=== PATIENT | male | born 1945 | race Caucasian/White ===

== ENCOUNTER 2016-12-02 11:05 | Emergency (ER) | payer OTHER ==
[2016-12-02] MEDS ORDERED: IPRATROPIUM/ALBUTEROL 3 ML DEYVIAL IH ONE (11:34)
[2016-12-02 11:47] VITALS: TEMP 99.8
[2016-12-02] MEDS ORDERED: predniSONE 20 MG TAB PO ONE (12:04)
--- NOTE | 2016-12-02 12:08 | UCPHY ---
H & P Patient Type: New Chief Complaint Nursing Narrative: COUGH,SOB,TIRED STARTED 2 WEEKS AGO Time Seen by Provider: 12/02/16 11:11 HPI/ROS: This patient has a history of COPD controlled with inhalers and reports increase in his baseline cough over the past 2 weeks with low-grade subjective fevers over the past week or so. Also feels slightly more winded than usual with exertion. No other new symptoms. His also has a history of cough for the past 2 weeks. ROS: No high fevers or chills. No significant fatigue. HEENT: Mild nasal congestion. No eye symptoms. No significant sore throat. Pulmonary: No pleuritic pain. No respiratory distress. No hemoptysis. Cardiovascular: No chest pain. No lower extremity swelling or calf pain. GI: No nausea vomiting or belly pain. 10 point ROS is otherwise negative. Source: Patient Exam Limitations: No limitations - Personal History Current Tetanus Diphtheria and Acellular Pertussis (TDAP): Yes - Medical/Surgical History PMH: COPD. He is not on home O2 He is uncertain of his baseline O2 sat Hx Asthma: No Hx Chronic Respiratory Disease: Yes Hx Diabetes: No Hx Cardiac Disease: No Hx Renal Disease: No Hx Cirrhosis: No Hx Alcoholism: No Hx HIV/AIDS: No Hx Splenectomy or Spleen Trauma: No Other PMH: HERNIA REPAIR - Family History Significant Family History: No pertinent family hx - Social History Smoking Status: Former smoker Alcohol Use: Occasionally Drug Use: None Additional Social History: The patient quit smoking 10 years ago. He drove to [place] from [place] to visit family 2 weeks ago with his . - Physical Exam Exam: General Appearance: Alert, no distress. Eyes: Pupils equal and round no pallor or injection. ENT, Mouth: Mucous membranes moist. Respiratory: Bilateral expiratory wheeze and mild rhonchi. I appreciate no rales. Cardiovascular: Regular rate and rhythm. No murmur gallop rub. No JVD. No leg edema or calf tenderness. Neurological: GCS of 15. No focal sensory or deficits appreciated Skin: Warm and dry, no rashes. Musculoskeletal: Neck is supple nontender. Extremities are symmetrical, full range of motion. Psychiatric: mood and affect are normal DIFFERENTIAL DIAGNOSIS: After history and physical exam differential diagnosis was considered for COPD exacerbation, pneumonia, URI with cough Constitutional: Initial Vital Signs Temperature (C) 37.7 C 12/02/16 11:15 Heart Rate 85 12/02/16 11:15 Respiratory Rate 18 12/02/16 11:15 Blood Pressure 163/80 H 12/02/16 11:15 O2 Sat (%) 89 L 12/02/16 11:15 O2 Delivery Mode Room Air Allergies/Adverse Reactions: shellfish derived [shrimp] Allergy (Verified 12/02/16 11:12) Home Medications: Medication Instructions Recorded Advair 250/50 (*) 12/02/16 Albuterol Hfa Anes Only [Proair 2 puffs IH Q4 PRN #1 mdi 12/02/16 Hfa Icu (*)] Azithromycin [Zithromax] 250 mg PO DAILY #6 tab 12/02/16 B-12 12/02/16 Centrum Silver Men Tablet 12/02/16 Ezetimibe 12/02/16 Spiriva Inhaler (RX) 12/02/16 Verapamil ER 12/02/16 predniSONE 60 mg PO DAILY #11 tab 12/02/16 Medical Decision Making ED Course/Re-evaluation: DuoNeb with increased aeration mild decreased wheeze slight improvement in his O2 sat 90-91% on room air. Prednisone 60 mg p. o. I counseled the patient regarding COPD exacerbation. Will cover him with macrolide antibiotic as well. He will continue his current inhalers with the addition of the albuterol inhaler, Zithromax and prednisone. Clinically he does not have any concerning findings for sepsis or other complicating factors. - Data Points Medications Given: Discontinued Medications Albuterol/Ipratropium (Duoneb) 3 ml IH EDNOW ONE Stop: 12/02/16 11:35 Last Admin: 12/02/16 11:48 Dose: 3 ml Prednisone (Prednisone) 60 mg PO EDNOW ONE Stop: 12/02/16 12:05 Last Admin: 12/02/16 12:08 Dose: 60 mg Departure - Departure Disposition: Home, Routine, Self-Care Clinical Impression: COPD exacerbation Condition: Good Instructions: COPD (Chronic Obstructive Pulmonary Disease) (ED) Additional Instructions: Diagnosis: COPD exacerbation Plan: Albuterol inhaler with spacer-2 puffs every 4 hours as needed for cough, wheeze or shortness of breath Continue your other inhalers Prednisone steroid as prescribed in the mornings after breakfast Zithromax antibiotic Go to the emergency department for any significant worsening despite the treatment plan Referrals: [facility] [Other] - As per Instructions Prescriptions: Albuterol Hfa Anes Only [Proair Hfa Icu (*)] 2 puffs IH Q4 PRN #1 mdi PRN Reason: Wheezing Azithromycin [Zithromax] 250 mg PO DAILY #6 tab predniSONE 60 mg PO DAILY #11 tab - PQRS PQRS Measurement: 134: Depression screening and followup, PRIME MD-PHQ2 (12 years and older) Over the last 2 weeks, how often have you been bothered by any of the following problems? 1. Feeling down, depressed, or hopeless? 2. Little interest or pleasure in doing things? Patient answered no to both 1 and 2 130: Documentation of medications. Reviewed all patient medications, doses, route and frequency. 226: Do you smoke? [No.] 47: 65 and older: Advanced care planning. Patient designates surrogate decision maker as spouse 51: 18 years old and older with diagnosis of COPD, spirometry performance. NA 52: 18 years old and older with COPD and symptoms of COPD or FEV1<60% predicted prescribed a B Agonist. NA
[2016-12-02 12:10] VITALS: BP 148/88; PULSE 92; RESP 19; O2SAT 90
== END 2016-12-02 12:10 | disposition home or self-care (01) ==
LOC: CED 11:05
DX: J44.1 Chronic obstructive pulmonary disease with (acute) exacerbation (principal); Z87.891 Personal history of nicotine dependence
CPT/HCPCS: 71020; G0463; 99204-PO

== ENCOUNTER 2017-11-30 09:39 | Emergency (ER) | payer OTHER ==
[2017-11-30 09:58] VITALS: RESP 16; TEMP 97.9
[2017-11-30] MEDS ORDERED: IPRATROPIUM/ALBUTEROL 3 ML DEYVIAL IH ONE (10:04)
--- NOTE | 2017-11-30 10:08 | EDPHY ---
H & P Stated Complaint: productive cough for 3 days Time Seen by Provider: 11/30/17 09:59 HPI/ROS: Chief Complaint: Cough, congestion HPI: 72-year-old male with a history of esophageal cancer and COPD has had a productive cough of greenish sputum for the last 3 days. No fevers or chills. Some shortness of breath with increasing use of his inhalers. He normally uses control inhaler but has been using more albuterol. No shortness of breath. No body aches. No headache. No nausea or vomiting. No decreased exercise tolerance. He is visiting from [place]. He is not currently on chemotherapeutic agents. My ROS PMH: COPD, esophageal cancer Social History: Past smoking, no alcohol, no recreational drug use Family History: non-contributory Physical Exam: Gen: Awake, Alert, No Distress HEENT: Nose: no rhinorrhea Eyes: PERRLA, EOMI Mouth: Moist mucosa Neck: Supple, no JVD Chest: nontender, diffuse expiratory wheeze, no focal rales or rhonchi Heart: S1, S2 normal, no murmur Abd: Soft, non-tender, no guarding Back: no CVA tenderness, no midline tenderness Ext: no edema, non-tender Skin: no rash Neuro: CN II-XII intact, Sensation grossly intact, Strength 5/5 in bilateral upper and lower extremities - Personal History Current Tetanus Diphtheria and Acellular Pertussis (TDAP): Yes Tetanus Vaccine Date: unsure - Medical/Surgical History Hx Asthma: No Hx Chronic Respiratory Disease: Yes Hx Diabetes: No Hx Cardiac Disease: No Hx Renal Disease: No Hx Cirrhosis: No Hx Alcoholism: No Hx HIV/AIDS: No Hx Splenectomy or Spleen Trauma: No Other PMH: HERNIA REPAIR,Copd,thrush,hypertension,high cholesterol,reflux - Social History Smoking Status: Former smoker Constitutional: Initial Vital Signs Temperature (C) 36.6 C 11/30/17 09:55 Heart Rate 92 11/30/17 09:55 Respiratory Rate 16 11/30/17 09:55 Blood Pressure 175/90 H 11/30/17 09:55 O2 Sat (%) 95 11/30/17 09:55 O2 Delivery Mode Room Air Allergies/Adverse Reactions: shellfish derived [shrimp] Allergy (Verified 11/30/17 09:53) Home Medications: Medication Instructions Recorded Advair 250/50 (*) 12/02/16 Albuterol Hfa Anes Only [Proair 2 puffs IH Q4 PRN #1 mdi 12/02/16 Hfa Icu (*)] B-12 12/02/16 Centrum Silver Men Tablet 12/02/16 Ezetimibe 12/02/16 Spiriva Inhaler (RX) 12/02/16 Verapamil ER 12/02/16 Azithromycin [Zithromax] 250 mg PO DAILY #6 tab 11/30/17 Medical Decision Making ED Course/Re-evaluation: 72-year-old male with a history of COPD with symptoms consistent with bronchitis. He is afebrile. Oxygen saturations are okay. He is improved after DuoNeb. Will send him home with azithromycin, follow up with his doctor returns to [place]. - Data Points Medications Given: Discontinued Medications Albuterol/Ipratropium (Duoneb) 3 ml IH EDNOW ONE Stop: 11/30/17 10:05 Last Admin: 11/30/17 10:17 Dose: 3 ml Departure - Departure Disposition: Home, Routine, Self-Care Clinical Impression: Acute bronchitis Condition: Good Instructions: Acute Bronchitis (ED), COPD (Chronic Obstructive Pulmonary Disease) (ED) Additional Instructions: Please take your full course of antibiotics. Follow up with your primary care physician when she returns home to [place]. Return to the emergency department for worsening shortness of breath, worsening cough, fevers or chills, nausea vomiting, or any other concerns. Prescriptions: Azithromycin [Zithromax] 250 mg PO DAILY #6 tab
[2017-11-30 10:49] VITALS: PULSE 86; O2SAT 93
[2017-11-30 10:50] VITALS: BP 165/86
== END 2017-11-30 10:46 | disposition home or self-care (01) ==
LOC: CED 09:39
DX: J20.9 Acute bronchitis, unspecified (principal); J44.9 Chronic obstructive pulmonary disease, unspecified; I10 Essential (primary) hypertension; Z85.01 Personal history of malignant neoplasm of esophagus; Z87.891 Personal history of nicotine dependence

== ENCOUNTER → 2018-06-30 | Outpatient (CLI) | payer OTHER | LOC: SUPIMAGING 11:28 | PROVIDERS: ATTEND Nurse Practitioner Family | DX: J44.9 Chronic obstructive pulmonary disease, unspecified (principal); J40 Bronchitis, not specified as acute or chronic | CPT/HCPCS: 71046-PN ==

== ENCOUNTER 2019-01-20 09:36 | Emergency (ER) | payer OTHER ==
[2019-01-20] MEDS ORDERED: IPRATROPIUM/ALBUTEROL 3 ML DEYVIAL IH ONE (09:53)
[2019-01-20] MEDS ORDERED: MAGNESIUM SULF 2 GM/WATER 50 ML IV ONE (10:05)
[2019-01-20] MEDS ORDERED: methylPREDNISolone SOD SUCC 125 MG/2 ML VIAL IVP ONE (10:05)
--- NOTE | 2019-01-20 10:13 | EDPHY ---
H & P Time Seen by Provider: 01/20/19 09:47 HPI/ROS: HPI Shortness of breath. Cough. 73-year-old male by private vehicle. This patient has a history of COPD. He visits [place] this time of year in the summertime. He often develops a bronchitis after being here for a week or 2. He has been here for 2-3 weeks at this time. He reports that he developed shortness of breath with a cough about a week ago. He was seen at an urgent care on Thursday. He was given an albuterol nebulizer treatment and discharged with a prescription for azithromycin. He is on day 3. Of his azithromycin. He presents back to the emergency department complaining of continued cough, wheezing and persistent shortness of breath. He is not on oxygen at home. He denies fever. ROS: Constitutional: No fever, no chills. No weakness. Eyes: No discharge. No changes in vision. ENT: No sore throat. No nasal congestion or rhinorrhea. Respiratory: As above. Cardiac: No chest pain, no palpitations. Gastrointestinal: No abdominal pain, no vomiting, no diarrhea. Genitourinary: No hematuria. No dysuria or increased frequency with urination. Musculoskeletal: No back pain. No neck pain. No myalgias or arthralgias. Skin: No rashes. Neurological: No headache. No focal weakness or altered sensation. Past medical history: Former smoker. Quit years ago. History of COPD. Hypertension, hyperlipidemia, reflux, esophageal cancer with surgery. Hernia repair. Social history: Former smoker. No alcohol. Currently here by himself. Visiting family in [place] from [place]. He drove here. He is planning on leaving next week with his . He is staying with family. Physical Exam: General Appearance: Alert, he is not in distress. Intermittent wet sounding cough. This patient is responding to questions appropriately and in full sentences. This patient appears well-hydrated and well-nourished. Eyes: Pupils equal and round no pallor or injection. No lid edema, erythema or injection. Respiratory: There are no retractions, diffuse wheezing on inhalation and exhalation bilaterally in all gamino. Scant rhonchi. Diminished air movement. No tachypnea. Cardiovascular: Regular rate and rhythm. No murmur. Neurological: Motor sensory function is grossly intact. Cranial nerves are normal. Gait is normal. Skin: Warm and dry, no rashes. Musculoskeletal: Neck is supple and nontender. Extremities are symmetrical. No significant lower extremity edema. All joints range without pain or impingement. Psychiatric: No agitation. No depression. Database: EKG: Imaging: Chest x-ray PA and lateral: Perihilar bronchitis. The cardiac mediastinal silhouette is otherwise unremarkable. Findings consistent with COPD. No focal infiltrate or pneumothorax. Interpreted by me. Procedures: Emergency department course: Triage vital signs reviewed. He is hypertensive. Room air pulse oximetry is 91 -92%. Vital signs are otherwise normal. He is afebrile. IV was established. He was placed on a assistant guest services manager. He was started on 2 [id number] albuterol/ Atrovent nebulizer treatments. He will be given 125 mg of IV Solu-Medrol and 2 g of IV magnesium. Chest x-ray to be obtained. He will be put on nasal cannula oxygen at 2-3 L. 10:45 a.m., the patient was re-evaluated, he is talking on the phone to a friend. Repeat pulmonary exam he is still diminished with some improvement. No tachypnea. He is still wheezing bilaterally with scant rhonchi. He will be given 2 additional albuterol nebulizer treatments. He has had the above medications. He will then be reassessed with a walking pulse oximetry and decision will be made on disposition. 11:30 a.m., the patient was re-evaluated, he has finished his albuterol nebulizer treatments. Repeat pulmonary exam he does have improved air movement but still has some wheezing. He is not tachypneic. He is speaking in full sentences. Pulse oximetry on 2 L of nasal cannula oxygen is 94%. I discussed admission with him. He does not want to be admitted. He lives about 5 min from the emergency department. We will get him up and walk him around the emergency department and see how he does. Another option if he declines admission is to send him home with oxygen. He endorses. 11:45 a.m., the patient is up and ambulatory without difficulty. However, his room air pulse oximetry drops to 87%. He does not want to be admitted to the hospital. Plan will be to send him home with home oxygen 2 L by nasal cannula continuous. I will also prescribe him prednisone at 60 mg daily for the next 4 days. He is to finish his azithromycin. He is on day 3 of that 5 day course currently. He has albuterol at home. I instructed him on dosing and usage of an albuterol MDI. Return to emergency department precautions were thoroughly reviewed with him. All of his questions were answered. He was discharged from the emergency department in good condition with oxygen. Differential Diagnosis: The differential diagnosis on this patient includes but is not limited to COPD exacerbation with bronchitis, reactive airway disease, pneumonia, CHF. This represents a partial list of diagnoses considered. These considerations are based on history, physical exam, past history, reassessment and diagnostic testing. Smoking Status: Former smoker Constitutional: Initial Vital Signs Temperature (C) 36.5 C 01/20/19 09:47 Heart Rate 92 01/20/19 09:47 Respiratory Rate 20 01/20/19 09:47 Blood Pressure 181/109 H 01/20/19 09:47 O2 Sat (%) 91 L 01/20/19 09:47 O2 Delivery Mode Nasal Cannula O2 (L/minute) 2 Allergies/Adverse Reactions: shellfish derived [shrimp] Allergy (Verified 01/20/19 09:45) Home Medications: Medication Instructions Recorded Advair 250/50 (*) 12/02/16 Albuterol Hfa Anes Only [Proair 2 puffs IH Q4 PRN #1 mdi 12/02/16 Hfa Icu (*)] B-12 12/02/16 Centrum Silver Men Tablet 12/02/16 Ezetimibe 12/02/16 Spiriva Inhaler (RX) 12/02/16 predniSONE [prednisone 20mg (RX)] 60 mg PO DAILY #9 tab 01/20/19 Medical Decision Making - Diagnostics Imaging Results: Imaging Impressions Chest X-Ray 01/20/19 10:06 Impression: Underlying interstitial lung disease and pleural/probable fibrosis in the right costophrenic angle. Acute bilateral lower lobe interstitial infiltrates present on previous study of November 28, 2017 have resolved in the interval.. - Data Points Medications Given: Discontinued Medications Albuterol (Proventil Neb) 6 ml IH EDNOW ONE Stop: 01/20/19 10:44 Last Admin: 01/20/19 10:48 Dose: 6 ml Albuterol/Ipratropium (Duoneb) 6 ml IH EDNOW ONE Stop: 01/20/19 09:54 Last Admin: 01/20/19 10:01 Dose: 6 ml Magnesium Sulfate (Magnesium Sulf 2 Gm (Premix)) 50 mls @ 50 mls/hr IV EDNOW ONE Stop: 01/20/19 11:04 Last Admin: 01/20/19 10:39 Dose: 50 mls Methylprednisolone Sodium Succinate (Solu-Medrol) 125 mg IVP EDNOW ONE Stop: 01/20/19 10:06 Last Admin: 01/20/19 10:21 Dose: 125 mg Departure - Departure Disposition: Home, Routine, Self-Care Clinical Impression: Bronchitis, COPD exacerbation Condition: Good Instructions: Using Oxygen at Home (ED), Acute Bronchitis (ED), COPD (Chronic Obstructive Pulmonary Disease) (ED) Additional Instructions: Read and follow provided instructions. Because you do not have a primary care physician here. We will serve as your Backup for follow-up and immediate care needs. Your to take 60 mg of prednisone daily for the next 4 days. Then stop. Albuterol meter dose inhaler: 1-2 puffs every 2-4 hours for the next 24-48 hours while awake. Then every 4-6 hours as needed. Finish your azithromycin antibiotic as prescribed. Use oxygen at 2-3 L through the nasal cannula when up and ambulating and when sleeping. Most important, return to the emergency department immediately for worsening cough, fever, difficulty breathing or other serious concerns. Referrals: NONE *PRIMARY CARE P,. [Primary Care Provider] - As per Instructions Prescriptions: predniSONE [prednisone 20mg (RX)] 60 mg PO DAILY #9 tab
[2019-01-20] MEDS ORDERED: ALBUTEROL 3 ML DEYVIAL IH ONE (10:43)
[2019-01-20 13:35] VITALS: BP 165/89
== END 2019-01-20 13:04 | disposition home or self-care (01) ==
LOC: CED 09:36
DX: J40 Bronchitis, not specified as acute or chronic (principal); J44.1 Chronic obstructive pulmonary disease with (acute) exacerbation
CPT/HCPCS: 71046; 96365; 96375; 99285; J2930; J3475; J7613